=== PATIENT | female | born 1935 | race Caucasian/White ===

== ENCOUNTER 2016-08-04 07:53 | Day surgery (SDC) | payer OTHER ==
--- NOTE | ~2016-08-04 | EGD ---
EGD REPORT [facility] [address] [address] NAME: KIRA MCCALLUM : [birth year] STATUS : REG [facility]#: [id number] AGE: 80 ADM/REG DATE : 08/04/16 MR#: [id number] REPORT SERV DATE: 08/04/16 DICTATED BY: BE BANERJEE DATE: 08/04/16 REPORT STATUS : Draft [facility]ANSCRIBED BY: [facility] DATE: 08/04/16 Endoscopy Center Patient Name: Kira Mccallum Date of : 1935 Attending MD: BE BANERJEE MD Procedure Date No Time: 08/04/2016 Procedure: Upper GI endoscopy Indications: Esophageal reflux, Heme positive stool Referring MD: TRACY PEARL Medicines: Monitored Anesthesia Care Complications: No immediate complications. Procedure: Pre-Anesthesia Assessment: - ASA Grade Assessment: III - A patient with severe systemic disease. After obtaining informed consent, the endoscope was passed under direct vision. Throughout the procedure, the patient's blood pressure, pulse, and oxygen saturations were monitored continuously. The GIF [id number] [id number] was introduced through the mouth, and advanced to the second part of duodenum. The upper GI endoscopy was accomplished without difficulty. The patient tolerated the procedure well. Findings: The examined esophagus was normal. The entire examined stomach was normal. The cardia and gastric fundus were normal on retroflexion. Localized nodular mucosa was found in the duodenal bulb. Biopsies were taken with a cold forceps for histology. Impression: - Normal esophagus. - Normal stomach. - Nodular mucosa in the duodenal bulb. Biopsied. Recommendation: - Await pathology results. - Follow an antireflux regimen. - Continue present medications. Procedure Code(s): --- Professional --- 40711, Esophagogastroduodenoscopy, flexible, transoral; with biopsy, single or multiple Diagnosis Code(s): --- Professional --- K31.9, Disease of stomach and duodenum, unspecified K21.9, Gastro-esophageal reflux disease without EGD REPORT [facility] [address] [place], [place] [address]. [address] NAME: KIRA MCCALLUM : [birth year] [place]US : [place] [facility] [place] [id number] AGE: 80 ADM/REG DATE : 08/04/16 MR#: [id number] REPORT SERV DATE: 08/04/16 DICTATED BY: BE BANERJEE DATE: 08/04/16 REPORT STATUS : Draft TRANSCRIBED BY: [employer] DATE: 08/04/16 esophagitis R19.5, Other fecal abnormalities CPT copyright 2013 [employer]. All rights reserved. The codes documented in this report are preliminary and upon correctional case manager review may be revised to meet current compliance requirements. BE BANERJEE MD 08/04/2016 10:11 AM This report has been signed electronically. Number of Addenda: 0 Note Initiated On: 08/04/2016 10:00 AM Scope Withdrawal Time 0 hours 0 minutes [address] [place], [place] [address] [address]
--- NOTE | ~2016-08-04 | EGD ---
EGD REPORT [facility] [address] [address] NAME: KIRA MCCALLUM : [birth year] STATUS : REG [facility]#: [id number] AGE: 80 ADM/REG DATE : 08/04/16 MR#: [id number] REPORT SERV DATE: 08/04/16 DICTATED BY: BE BANERJEE DATE: 08/04/16 REPORT STATUS : Draft [facility]: [facility] DATE: 08/04/16 Endoscopy Center Patient Name: Kira Mccallum Date of : 1935 Attending MD: BE BANERJEE MD Procedure Date No Time: 08/04/2016 Procedure: Colonoscopy Indications: Heme positive stool Referring MD: TARCY PEARL Medicines: Monitored Anesthesia Care Complications: No immediate complications. Procedure: Pre-Anesthesia Assessment: - ASA Grade Assessment: III - A patient with severe systemic disease. After I obtained informed consent, the scope was passed under direct vision. Throughout the procedure, the patient's blood pressure, pulse, and oxygen saturations were monitored continuously. The PCF [id number] was introduced through the anus and advanced to the cecum, identified by appendiceal orifice and ileocecal valve. The colonoscopy was performed with moderate difficulty due to significant looping. Successful completion of the procedure was aided by applying abdominal pressure. The patient tolerated the procedure well. The quality of the bowel preparation was fair. Findings: A sessile polyp was found in the ascending colon. The polyp was 5 mm in size. The polyp was removed with a cold biopsy forceps. Resection and retrieval were complete. A sessile polyp was found in the ascending colon. The polyp was 7 mm in size. The polyp was removed with a cold snare. Resection and retrieval were complete. A sessile polyp was found in the descending colon. The polyp was 7 mm in size. The polyp was removed with a cold biopsy forceps. Resection and retrieval were complete. Two sessile polyps were found in the rectum. The polyps were 3 to 6 mm in size. These polyps were removed with a cold biopsy forceps. Resection and retrieval were complete. Hemorrhoids were found during retroflexion and were mild. Impression: - One 5 mm polyp in the ascending colon. Resected and retrieved. - One 7 mm polyp in the ascending colon. Resected and retrieved. EGD REPORT [place] [id number] [facility] [place]. [address] NAME: KIRA MCCALLUM : [birth year] STATUS : REG [facility]#: [id number] AGE: 80 ADM/REG DATE : 08/04/16 MR#: [id number] REPORT SERV DATE: 08/04/16 DICTATED BY: BE BANERJEE DATE: 08/04/16 REPORT STATUS : Draft TRANSCRIBED BY: [employer] [facility] DATE: 08/04/16 - One 7 mm polyp in the descending colon. Resected and retrieved. - Two 3 to 6 mm polyps in the rectum. Resected and retrieved. - Hemorrhoids. Recommendation: - Patient has a contact number available for emergencies. The signs and symptoms of potential delayed complications were discussed with the patient. Return to normal activities tomorrow. Written discharge instructions were provided to the patient. - Regular diet. - Await pathology results. - Repeat colonoscopy for surveillance based on pathology results. - Return to GI clinic in 4 weeks. Procedure Code(s): --- Professional --- 95795, Colonoscopy, flexible, proximal to splenic flexure; with removal of tumor(s), polyp(s), or other lesion(s) by snare technique 71140, 59, Colonoscopy, flexible, proximal to splenic flexure; with biopsy, single or multiple Diagnosis Code(s): --- Professional --- K62.1, Rectal polyp D12.4, Benign neoplasm of descending colon D12.2, Benign neoplasm of ascending colon K64.9, Unspecified hemorrhoids R19.5, Other fecal abnormalities CPT copyright 2013 [employer]. All rights reserved. The codes documented in this report are preliminary and upon security patrol officer review may be revised to meet current compliance requirements. BE BANERJEE MD 08/04/2016 10:40 AM This report has been signed electronically. Number of Addenda: 0 Note Initiated On: 08/04/2016 9:56 AM Scope Withdrawal Time 0 hours 16 minutes 35 seconds [address] [address]
[~2016-08-04 07:53] MED LIST: CALCIUM; EVISTA60 PO; LOP25 PO; NEXIUM20 M1 PO; PLAVIX PO; VIT C; ZOL50 PO; [UNRECOGNIZED DRUG - OTHER]
== END 2016-08-04 23:59 | disposition home or self-care (01) ==
LOC: DMU 07:53
PROVIDERS: Internal Medicine Gastroenterology
PROC: 0DBM8ZZ Excision of Descending Colon, Via Natural or Artificial Opening Endoscopic (ICD-10-PCS; 2016-08-04)
PROC: 0DB98ZX Excision of Duodenum, Via Natural or Artificial Opening Endoscopic, Diagnostic (ICD-10-PCS; principal; 2016-08-04 09:30)
PROC: 0DBK8ZZ Excision of Ascending Colon, Via Natural or Artificial Opening Endoscopic (ICD-10-PCS; 2016-08-04 09:30)
PROC: 0DBP8ZZ Excision of Rectum, Via Natural or Artificial Opening Endoscopic (ICD-10-PCS; 2016-08-04 09:30)
DX: D12.2 Benign neoplasm of ascending colon (principal); D12.4 Benign neoplasm of descending colon; K62.1 Rectal polyp; K31.9 Disease of stomach and duodenum, unspecified; I49.3 Ventricular premature depolarization; E78.00 Pure hypercholesterolemia, unspecified; J84.10 Pulmonary fibrosis, unspecified; Z86.73 Personal history of transient ischemic attack (TIA), and cerebral infarction without residual deficits; Z79.02 Long term (current) use of antithrombotics/antiplatelets; Z79.899 Other long term (current) drug therapy
CPT/HCPCS: 88305